=== PATIENT | male | born 1970 | race African-American/Black ===

== ENCOUNTER 2023-02-23 18:32 | Emergency (ER) | payer OTHER ==
[2023-02-23 18:38] VITALS: TEMP 97.5; BMI 36.9
[2023-02-23] MEDS ORDERED: traMADol HCL 50 MG TABLET PO ONE (21:09)
[2023-02-23] MEDS ORDERED: traMADol HCL 50 MG TABLET ONE (21:16)
[2023-02-23 21:27] LABS: POTASSIUM 3.9 mmol/L (3.5-5.1)
[2023-02-23 21:29] LABS: BLOOD UREA NITROGEN 11.3 mg/dL (7-18); CALCIUM 9.2 mg/dL (8.5-10.1)
[2023-02-23 21:32] LABS: CREATININE 0.7 mg/dL (0.55-1.3)
[2023-02-23 21:34] LABS: BILIRUBIN,TOTAL 0.7 mg/dL (0.2-1); TOT PROT 7.2 g/dl (6.4-8.2)
[2023-02-23 22:28] VITALS: BP 100/68; PULSE 72; RESP 19
== END 2023-02-23 22:28 | disposition home or self-care (01) ==
LOC: JERFT 18:32
DX: M25.551 Pain in right hip (principal); R10.30 Lower abdominal pain, unspecified
CPT/HCPCS: 36415; 72170-TC-FY; 73502-TC-RT-FY; 80053; 99284-25

== ENCOUNTER 2024-03-10 10:29 | Emergency (ER) | payer OTHER ==
[2024-03-10 10:41] VITALS: BP 136/76; PULSE 82; RESP 18; TEMP 97.1; BMI 36.1
[2024-03-10 13:01] LABS: BASO % 0.9 % (0-2.0); EOS % 1.9 % (0-4.5); HEMATOCRIT 43.1 % (35.4-49); HEMOGLOBIN 14.3 GM/dL (11.7-16.9); LYMPH % 23.8 % (8-40); MCH 29.3 pg (25.7-33.7); MCHC 33.2 g/dl (32.0-35.9); MEAN CELL VOLUME 88.2 fl (80-96); MONO % 4.6 % (3.8-10.2); NEUT % 68.8 % (42.8-82.8); PLATELET COUNT 274 10^3/uL (134-434); RBC 4.88 M/mm3 (4.00-5.60); RDW 15.9 % (11.9-15.9); WHITE BLOOD COUNT 6.9 K/mm3 (4.0-10.0)
[2024-03-10 13:26] LABS: POTASSIUM 4.3 mmol/L (3.5-5.1)
[2024-03-10 13:28] LABS: CALCIUM 9.1 mg/dL (8.5-10.1)
[2024-03-10] MEDS: SODIUM CHLORIDE 0.9% 500 ML INFUS.BAG IV ONE (13:28)
[2024-03-10 13:29] LABS: ALBUMIN 3.9 g/dl (3.4-5.0); BLOOD UREA NITROGEN 7.8 mg/dL (7-18); MAGNESIUM 2.4 mg/dL (1.8-2.4)
[2024-03-10 13:32] LABS: CREATININE 0.8 mg/dL (0.55-1.3)
[2024-03-10 13:33] LABS: BILIRUBIN,TOTAL 0.4 mg/dL (0.2-1); TOT PROT 7.2 g/dl (6.4-8.2)
== END 2024-03-10 15:37 | disposition home or self-care (01) ==
LOC: JER 10:29
DX: R42 Dizziness and giddiness (principal); R55 Syncope and collapse
CPT/HCPCS: 36415; 71045-TC-FY; 80053; 83735; 84484; 85025; 93005; 93010; 99285-25